=== PATIENT | male | born 1945 | race Caucasian/White ===

== ENCOUNTER 2019-11-11 10:05 | Day surgery (SDC) | payer OTHER, MEDICARE ==
[2019-11-07 13:43] VITALS: BMI 28.5
[2019-11-11 10:35] VITALS: TEMP 98.3
[2019-11-11 12:12] VITALS: BP 121/75; PULSE 59
--- NOTE | 2019-11-14 11:17 | PATH ---
Surgical Pathology Report Patient Name: SPEEDY CARRASCO [facility]. Rec. #: [id number] /Age/Gender: 1945 (Age: 74) / M Account: [id number] Location: [facility] Taken: 11/11/2019 Received: 11/11/2019 Reported: 11/14/2019 Physicians: Sherwin Gonzalez M.D. Specimen(s) Received A: BX POLYP ILEOCECAL VALVE B: BX POLYP RECTOSIGMOID COLON Clinical History History of polyps Postoperative diagnosis: Colon polyps Final Diagnosis A. ILEOCECAL VALVE, POLYP, BIOPSY: TUBULAR ADENOMA B. RECTOSIGMOID COLON, POLYP, BIOPSY: HYPERPLASTIC POLYP. Electronically Signed Yeimy Lora M.D. Gross Description A. Received in formalin, labeled "biopsy polyp ileocecal valve" are 2 beebe, irregular portions of soft tissue measuring 0.2 and 0.3 cm. in greatest dimension. The specimens are submitted in toto in one cassette. B. Received in formalin, labeled "biopsy polyp rectosigmoid colon" is a beebe, irregular portion of soft tissue measuring 0.2 cm. in greatest dimension. The specimen is submitted in toto in one cassette. /11/12/2019 saudi11/12/2019
== END 2019-11-11 11:45 | disposition home or self-care (01) ==
LOC: FASU-ENDO 10:05
PROVIDERS: ATTEND Internal Medicine Gastroenterology
PROC: 0DBN8ZX Excision of Sigmoid Colon, Via Natural or Artificial Opening Endoscopic, Diagnostic (ICD-10-PCS; 2019-11-11)
PROC: 0DBC8ZX Excision of Ileocecal Valve, Via Natural or Artificial Opening Endoscopic, Diagnostic (ICD-10-PCS; principal; 2019-11-11 10:42)
DX: Z86.010 Personal history of colon polyps (principal); D12.0 Benign neoplasm of cecum; D12.7 Benign neoplasm of rectosigmoid junction

== ENCOUNTER 2021-06-05 16:43 | Observation (INO) | payer OTHER, MEDICARE ==
[2021-06-05 16:56] VITALS: TEMP 98.6; BMI 27.8
[2021-06-05 17:57] LABS: BASO % 0.7 % (0-2.0); EOS % 0.7 % (0-4.5); HEMATOCRIT 38.5 % (35.4-49); HEMOGLOBIN 13.1 GM/dL (11.7-16.9); LYMPH % 20.7 % (8-40); MCH 29.5 pg (25.7-33.7); MCHC 34.1 g/dl (32.0-35.9); MEAN CELL VOLUME 86.4 fl (80-96); MEAN PLT VOLUME 9.4 fl (7.5-11.1); MONO % 22.8 % (3.8-10.2); NEUT % 55.1 % (42.8-82.8); PLATELET COUNT 201 10^3/uL (134-434); RBC 4.45 M/mm3 (4.00-5.60); RDW 13.5 % (11.9-15.9); WHITE BLOOD COUNT 5.9 K/mm3 (4.0-10.0)
[2021-06-05 18:25] LABS: CHLORIDE 107 mmol/L (98-107); SODIUM 141 mmol/L (136-145)
[2021-06-05 18:27] LABS: CALCIUM 8.3 mg/dL (8.5-10.1)
[2021-06-05 18:28] LABS: ALBUMIN 3.7 g/dl (3.4-5.0); ANION GAP 8 MMOL/L (8-16); CO2 26 mmol/L (21-32); GLUCOSE,RANDOM 106 mg/dL (74-106)
[2021-06-05 18:31] LABS: CREATININE 0.9 mg/dL (0.55-1.3); SGOT/AST 16 U/L (15-37); SGPT/ALT 24 U/L (13-61)
[2021-06-05 18:33] LABS: BILIRUBIN,TOTAL 0.5 mg/dL (0.2-1)
[2021-06-05 18:34] LABS: ALK PHOS 91 U/L (45-117)
[2021-06-05 18:38] LABS: N-TERMINAL BNP 75.7 pg/ml (5-450)
[2021-06-05 18:40] LABS: ANISOCYTOSIS 0; MACROCYTOSIS 0; PLATELET ESTIMATE NORMAL
[2021-06-05 20:15] VITALS: BP 112/78; PULSE 72
[2021-06-05] MEDS ORDERED: guaiFENesin 200 MG/10 ML 10 ML UNIT-DOSE CUPS PO ONE (23:26)
[2021-06-06] MEDS ORDERED: ASPIRIN 81 MG CHEWABLE TABLETS PO SCH (10:00)
== END 2021-06-05 23:30 | disposition left against medical advice (07) ==
LOC: JER 16:43 → JERBED 18:19
PROVIDERS: ADMIT Internal Medicine; ATTEND Internal Medicine
DX: R07.9 Chest pain, unspecified (principal); I44.7 Left bundle-branch block, unspecified; I10 Essential (primary) hypertension; E78.5 Hyperlipidemia, unspecified; E11.9 Type 2 diabetes mellitus without complications; E03.9 Hypothyroidism, unspecified; N40.0 Benign prostatic hyperplasia without lower urinary tract symptoms; D64.9 Anemia, unspecified
CPT/HCPCS: 36415; 71046-TC-FY; 80053; 83690; 83735; 83880; 84484; 85025; 87804; 93005; 93010; 99285-25; C9803; G0378; U0003; U0005

== ENCOUNTER 2022-11-14 17:18 | Emergency (ER) | payer OTHER, MEDICARE ==
[2022-11-14 17:48] VITALS: BP 128/76; PULSE 75; RESP 18; TEMP 98.4; BMI 29.4
[2022-11-14] MEDS ORDERED: SODIUM CHLORIDE 0.9% 1000 ML INFUS.BAG IV ONE (18:26)
[2022-11-14 18:32] LABS: HEMATOCRIT 39.6 % (35.4-49); HEMOGLOBIN 13.6 G/dL (11.7-16.9); MCH 29.8 pg (25.7-33.7); MCHC 34.3 g/dl (32.0-35.9); MEAN CELL VOLUME 86.8 fl (80-96); MEAN PLT VOLUME 9.4 fl (7.5-11.1); PLATELET COUNT 219.7 10^3/uL (134-434); RBC 4.56 10^6/uL (4.00-5.60); RDW 14.4 % (11.9-15.9); WHITE BLOOD COUNT 15.7 10^3/uL (4.0-10.8)
[2022-11-14 18:50] LABS: ALBUMIN 3.8 g/dl (3.4-5.0); BILIRUBIN,TOTAL 1.6 mg/dl (0.2-1); CALCIUM 8.8 mg/dl (8.5-10); CREATININE 0.7 mg/dl (0.55-1.3); TOT PROT 6.7 g/dl (6.4-8.2)
[2022-11-14 19:15] LABS: PLATELET ESTIMATE ADEQUATE
== END 2022-11-14 19:25 | disposition home or self-care (01) ==
LOC: FER 17:18
DX: R11.2 Nausea with vomiting, unspecified (principal)
CPT/HCPCS: 0241U-QW; 36415; 80053; 85027; 99283-25

== ENCOUNTER 2024-02-13 03:53 | Day surgery (SDC) | payer OTHER, MEDICARE ==
[2024-02-09 13:51] VITALS: BMI 29.5
[2024-02-13] MEDS ORDERED: BUPIVACAINE HCL/PF 0.25% (2.5MG/ML) 10 ML VIAL ONE (07:16)
[2024-02-13] MEDS ORDERED: HEPARIN NA (PORCINE) 5,000 UNITS/ML 1ML VIAL ONE (07:17)
[2024-02-13] MEDS ORDERED: PROPOFOL 20 ML ONE (08:01)
[2024-02-13] MEDS ORDERED: FENTANYL CITRATE/PF 50 MCG/ML VIAL ONE ×4 (08:01→10:54)
[2024-02-13] MEDS ORDERED: ROCURONIUM BROMIDE 50 MG/5 ML SYRINGE ONE ×3 (08:01→10:41)
[2024-02-13] MEDS ORDERED: ONDANSETRON 4 MG/2 ML VIAL ONE (08:02)
[2024-02-13] MEDS ORDERED: MIDAZOLAM HCL 2 MG/2 ML SINGLE DOSE VIAL ONE (08:02)
[2024-02-13] MEDS ORDERED: SUGAMMADEX SODIUM 200 MG/2 ML VIAL ONE (08:02)
[2024-02-13] MEDS ORDERED: DEXAMETHASONE SOD PHOSPHATE 4 MG/1 ML VIAL ONE (08:02)
[2024-02-13] MEDS ORDERED: LIDOCAINE HCL/PF 2% SDV 5ML VIAL ONE (08:02)
[2024-02-13] MEDS ORDERED: ACETAMINOPHEN INJECTION 100 ML IVPB ONE (08:03)
[2024-02-13] MEDS ORDERED: SEVOFLURANE 250 ML BTL ONE (08:03)
[2024-02-13] MEDS ORDERED: PROMETHAZINE HCL 25 MG/1 ML VIAL IVPB PRN (08:07)
[2024-02-13] MEDS ORDERED: oxyCODONE HCL 5 MG TABLET PO PRN (08:07)
[2024-02-13] MEDS ORDERED: ONDANSETRON 4 MG/2 ML VIAL IVPUSH PRN (08:07)
[2024-02-13] MEDS ORDERED: LACTATED RINGERS SOLUTION 1,000 ML IV SCH (08:15)
[2024-02-13] MEDS ORDERED: ceFAZolin SODIUM 1 GM VIAL ONE (08:38)
[2024-02-13] MEDS: ceFAZolin SODIUM 1 GM VIAL IVPB ONE (08:38)
[2024-02-13] MEDS: BUPIVACAINE HCL/PF 0.25% (2.5MG/ML) 10 ML VIAL IJ ONE ×2 (08:56)
[2024-02-13] MEDS ORDERED: KETOROLAC TROMETHAMINE 30 MG/1 ML VIAL ONE (09:21)
[2024-02-13] MEDS ORDERED: HYDROmorphone HCl 2 MG/ML VIAL IVPUSH PRN (11:22)
[2024-02-13 12:47] VITALS: TEMP 97.6
[2024-02-13 13:14] VITALS: BP 118/70; PULSE 68; RESP 16
[2024-02-13] MEDS ORDERED: oxyCODONE HCL 5 MG TABLET ONE (13:17)
[2024-02-13] MEDS: oxyCODONE HCL 5 MG TABLET PO PRN (13:21)
== END 2024-02-13 13:48 | disposition home or self-care (01) ==
LOC: JASU-SURG 03:53
PROVIDERS: ATTEND Surgery
PROC: 8E0W4CZ Robotic Assisted Procedure of Trunk Region, Percutaneous Endoscopic Approach (ICD-10-PCS; 2024-02-13)
PROC: 0YU54JZ Supplement Right Inguinal Region with Synthetic Substitute, Percutaneous Endoscopic Approach (ICD-10-PCS; principal; 2024-02-13 08:00)
DX: K40.90 Unilateral inguinal hernia, without obstruction or gangrene, not specified as recurrent (principal)
CPT/HCPCS: 49650; S2900; 86850; 86900; 86901; 94760; C1781; J0131; J1644